=== PATIENT | female | born 1955 | race Caucasian/White ===

== ENCOUNTER 2016-07-04 18:45 | Emergency (ER) | payer BC, OTHER ==
[2016-07-04 18:59] VITALS: BP 177/99
[2016-07-04] MEDS ORDERED: Albuterol 0.083% 2.5 MG/3 ML Neb Soln NEB ONE (19:32)
--- NOTE | 2016-07-04 19:35 | EDM.PDOC ---
ED HISTORY OF PRESENT ILLNESS - General Chief Complaint: Respiratory Problem Stated Complaint: SOB Time Seen by Provider: 07/04/16 19:53 Source of Information: Reports: Patient History Limitations: Reports: No limitations - History of Present Illness INITIAL COMMENTS - FREE TEXT/NARRATIVE: Patient is a 61 y/o female who presents to the E.D. complaining of chest pressure, upper back pain, shortness of breath, and productive cough for almost 1 month. Patient states since being diagnosed with influenza June 15, 2016 she has had these symptoms. States cough is not as productive but continues to have this sensation she cannot catch her breath. States she as of recently has had sinus congestion with rhinitis. Denies n/v, diaphoresis, dizziness, increased weight, pedal edema, orthopnea, PND, fever/chills, or any additional complaints. Timing/Duration: Reports: Constant Severity: mild Location, General: Reports: chest Quality: Reports: Pressure Improves with: Reports: None Worsens with: Reports: Other (exertion) Associated Symptoms (General): Reports: cough w sputum, shortness of breath. Denies: fever/chills, nausea/vomiting Treatments [employer]: Reports: Other (see below) (none stated) - Related Data Allergies/ADRs: Allergies Allergy/AdvReac Type Severity Reaction Status Date / Time ketorolac [From Toradol] Allergy Nausea Verified 07/04/16 18:59 Home Meds: Home Meds Albuterol Sulfate [Ventolin Hfa] 8 gm IH Q4HR PRN #1 hfa.aer.ad 07/04/16 [Rx] L.acidoph,Paracasei, B.lactis [Probiotic] 1 each PO DAILY 07/04/16 [History] Multivitamin [Multivitamins] 1 each PO DAILY 07/04/16 [History] predniSONE 40 mg PO WITHBREAKFAST #10 tablet 07/04/16 [Rx] Past Medical History HEENT History: Reports: Impaired vision - Past Surgical History Musculoskeletal Surgical History: Reports: Arthroscopic knee Social & Family History - Family History Family Medical History: Noncontributory - Tobacco Use Smoking Status *Q: Former Smoker Used Tobacco, but Quit: No - Caffeine Use Caffeine Use: Reports: Coffee - Recreational Drug Use Recreational Drug Use: No ED ROS GENERAL - Review of Systems Review Of Systems: See Below Constitutional: Denies: fever, chills, decreased appetite HEENT: Reports: Rhinitis, Sinus problem. Denies: Ear pain, Throat pain Respiratory: Reports: Shortness of Breath, Wheezing, Cough, Sputum. Denies: Hemoptysis Cardiovascular: Reports: Chest pain (pressure, heaviness), Dyspnea on exertion. Denies: Edema, Palpitations GI/Abdominal: Denies: Abdominal pain, Nausea, Vomiting ED EXAM, GENERAL - Physical Exam Exam: See Below Exam Limited By: No limitations General Appearance: alert, WD/WN, no apparent distress Eye Exam: bilateral eye: PERRL Ears: normal external exam, normal canal, hearing grossly normal, normal TMs Nose: normal inspection, normal mucosa, no blood Throat/Mouth: Normal inspection, Normal lips, Normal oropharynx, Normal voice, No airway compromise Head: atraumatic, normocephalic Neck: normal inspection, supple, non-tender. No: lymphadenopathy (L), lymphadenopathy (R) Respiratory/Chest: no respiratory distress, lungs clear, normal breath sounds, no accessory muscle use, chest non-tender Cardiovascular: normal peripheral pulses, regular rate, rhythm, no murmur Peripheral Pulses: 2+: radial (L), radial (R) GI/Abdominal: normal bowel sounds, soft, non tender, no organomegaly, no distention Back Exam: normal inspection Extremities: normal inspection, non-tender, no pedal edema, normal capillary refill Neurological: alert, oriented, CN II-XII intact, normal cognition, no motor/ sensory deficits Psychiatric: normal affect, normal mood Skin Exam: Warm, Dry, Intact, Normal color, No rash Course - Vital Signs Last Recorded V/S: Last Vital Signs Temp 97.7 F 07/04/16 18:52 Pulse 71 07/04/16 18:52 Resp 18 07/04/16 18:52 BP 177/99 H 07/04/16 18:52 Pulse Ox 97 07/04/16 19:53 - Orders/Labs/Meds Orders: Active Orders 24 hr Category Date Time Status EKG Documentation Completion [RC] STAT Care 07/04/16 19:32 Active RT Aerosol Therapy [RC] ASDIRECTED Care 07/04/16 19:32 Active Chest 2V [CR] Stat Exams 07/04/16 19:32 Taken Labs: Laboratory Tests 07/04/16 07/04/16 07/04/16 Range/Units 20:14 20:14 20:14 WBC 6.17 (3.98-10.04) K/mm3 RBC 4.42 (3.98-5.22) M/mm3 Hgb 13.2 (11.2-15.7) gm/L Hct 39.6 (34.1-44.9) % MCV 89.6 (79.4-94.8) fl MCH 29.9 (25.6-32.2) pg MCHC 33.3 (32.2-35.5) g/dl RDW Std Deviation 44.9 (36.4-46.3) fL Plt Count 271 (182-369) K/mm3 MPV 9.2 L (9.4-12.3) fl Neut % (Auto) 52.3 (34.0-71.1) % Lymph % (Auto) 29.2 (19.3-51.7) % Stokes % (Auto) 12.2 (4.7-12.5) % Eos % (Auto) 5.8 (0.7-5.8) Baso % (Auto) 0.3 (0.1-1.2) % Neut # (Auto) 3.23 (1.56-6.13) K/mm3 Lymph # (Auto) 1.80 (1.18-3.74) K/mm3 Stokes # (Auto) 0.75 H (0.24-0.36) K/mm3 Eos # (Auto) 0.36 (0.04-0.36) K/mm3 Baso # (Auto) 0.02 (0.01-0.08) K/mm3 D-Dimer, Quantitative 0.45 (0.19-0.59) mg/L Sodium 141 (136-145) mEq/L Potassium 3.5 (3.5-5.1) mEq/L Chloride 106 (98-107) mEq/L Carbon Dioxide 28 (21-32) mEq/L Anion Gap 10.5 (5-15) BUN 17 (7-18) mg/dL Creatinine 1.0 (0.55-1.02) mg/dL Est Cr Clr Drug Dosing 50.37 mL/min Estimated GFR (MDRD) 56 (>60) mL/min BUN/Creatinine Ratio 17.0 (14-18) Glucose 101 (80-115) mg/dL Calcium 9.6 (8.5-10.1) mg/dL Total Bilirubin 0.4 (0.2-1.0) mg/dL AST 18 (15-37) U/L ALT 24 (14-59) U/L Alkaline Phosphatase 62 (46-116) U/L Troponin I < 0.017 (0.00-0.056) ng/mL C-Reactive Protein 0.2 (<1.0) mg/dL Total Protein 7.6 (6.4-8.2) g/dl Albumin 4.0 (3.4-5.0) g/dl Globulin 3.6 gm/dL Albumin/Globulin Ratio 1.1 (1-2) Meds: Medications Discontinued Medications Generic Name Dose Route Start Last Admin Trade Name Freq PRN Reason Stop Dose Admin Albuterol 2.5 mg 07/04/16 19:32 07/04/16 19:51 Proventil Neb Soln NEB 07/04/16 19:33 2.5 mg ONETIME ONE Administration - Re-Assessments/Exams Free Text/Narrative Re-Assessment/Exam: Ordered CXR, EKG, CBC, C14, CRP, Troponin, D-Dimer, and albuterol neb tx. CXR No acute findings noted. Final interpretation is pending. Dr. Beasley agrees. 07/04/16 20:44 Reassessment, patient had immediate improvements with the neb treatment. States it was short lived and feeling "yucky again". 07/04/16 21:20 Labs reviewed no pertinent positive findings. Patient is ready to be discharged home. Ordered prednisone 40mg PO. Discharge instructions as documented. Departure - Departure Time of Disposition: 21:22 Disposition: Home, Self-Care 01 Condition: good Clinical Impression: Bronchitis Prescriptions: Albuterol Sulfate [Ventolin Hfa] 8 gm IH Q4HR PRN #1 hfa.aer.ad PRN Reason: Shortness Of Breath predniSONE 40 mg PO WITHBREAKFAST #10 tablet Instructions: Upper Respiratory Infection, Adult, [id number], Acute Bronchitis, [id number], Shortness of Breath, [id number] Forms: ED Department Discharge Additional Instructions: History and findings suggestive of bronchitis. Treatment is prednisone 40mg every a.m. for 5 days and albuterol inhaler 1 puff every 4 hours for shortness of breath. Symptoms should resolve in the next 5 to 7 days. Followup with PCP for reevaluation at that time if no changes noted. Return to the E.D. if you develop any new or worsening symptoms. - My Orders Last 24 Hours: My Active Orders 07/04/16 19:32 EKG Documentation Completion [RC] STAT RT Aerosol Therapy [RC] ASDIRECTED Chest 2V [CR] Stat - Assessment/Plan Last 24 Hours: My Active Orders 07/04/16 19:32 EKG Documentation Completion [RC] STAT RT Aerosol Therapy [RC] ASDIRECTED Chest 2V [CR] Stat
[2016-07-04] MEDS ORDERED: predniSONE 20 MG Tab PO ONE (21:20)
--- NOTE | 2016-07-05 09:13 | CR ---
Chest: Two views of the chest were obtained. Comparison: No previous study. Heart size is normal. Mild tortuosity of the thoracic aorta is seen. Minimal scarring is noted within the lingula. Lungs otherwise are clear. Diaphragms are flattened on the lateral view raising the possibility of emphysematous change. Bony structures are unremarkable for the patient's age. Impression: 1. Possible emphysematous change. Please correlate if patient is a smoker. 2. Mild scarring within the lingula. Nothing acute is otherwise seen on two-view chest x-ray. Diagnostic code #3
== END 2016-07-04 21:34 | disposition home or self-care (01) ==
LOC: JD.ED 18:45
DX: J40 Bronchitis, not specified as acute or chronic (principal); Z87.891 Personal history of nicotine dependence; Z88.6 Allergy status to analgesic agent
CPT/HCPCS: 36415; 71020; 80053; 84484; 85025; 85379; 86140; 93005; 94664; 99285; A9270; 99283